=== PATIENT | male | born 1960 | race African-American/Black ===

== ENCOUNTER 2025-01-18 21:52 | Emergency (ER) | payer MEDICAID ==
[2025-01-19] MEDS: Dexamethasone 4 MG Tab PO ONE
[2025-01-19] MEDS: Albuterol/Ipratropium 3.0-0.5 MG/3 ML Neb Soln NEB ONE (00:13)
== END 2025-01-19 01:26 | disposition home or self-care (01) ==
LOC: MW.ED 21:52
DX: J44.1 Chronic obstructive pulmonary disease with (acute) exacerbation (principal); F17.210 Nicotine dependence, cigarettes, uncomplicated; Z79.899 Other long term (current) drug therapy
CPT/HCPCS: 71046; 71046-26; 99283; 99284; A9270-GY; J8540

== ENCOUNTER 2025-02-03 15:56 | Emergency (ER) | payer MEDICAID | END 2025-02-03 18:14 | disposition home or self-care (01) | LOC: MW.ED 15:56 | DX: J39.9 Disease of upper respiratory tract, unspecified (principal); R03.0 Elevated blood-pressure reading, without diagnosis of hypertension; Z87.891 Personal history of nicotine dependence; Z79.899 Other long term (current) drug therapy | CPT/HCPCS: 71046; 71046-26; 99282; 99283 ==